=== PATIENT | male | born 1975 | race Caucasian/White ===

== ENCOUNTER 2018-09-02 15:47 | Emergency (ER) | payer BC, OTHER ==
--- NOTE | 2018-09-02 17:51 | ED ---
GI/ HPI - HPI Summary HPI Summary: 42 yo male presents to [facility] [place] ED with right testicular pain over the last 1 - 1.5 weeks. He tells me that it is a dull pain on the lateral side of the right testicle that began suddenly over a week ago. He has not been sexually active in over 3 months. He is urinating without pain or burning. He has never had pain like this before. Pain is worse with sitting for long periods of time. Pain is intermittent throughout the day lasting up to 5-10minutes at a time and resolves spontaneously. Denies trauma, dysuria, hematuria, rash, swelling, or lesions. No fevers, chills, night sweats, or unexplained weight loss. PMHx positive for a vasectomy about 11 years ago. - History of Current Complaint Chief Complaint: EDAbdPain Time Seen by Provider: 09/02/18 17:47 Stated Complaint: ABD AND GROIN PAIN Hx Obtained From: Patient Onset/Duration: Started Weeks Ago Timing: Intermittent Severity: Mild Current Severity: Mild Pain Intensity: 3 - Allergy/Home Medications Allergies/Adverse Reactions: Allergies Allergy/AdvReac Type Severity Reaction Status Date / Time No Known Allergies Allergy Verified 09/02/18 16:08 Home Medications: Home Medications NK [No Home Medications Reported] 09/02/18 [History Confirmed 09/02/18] PMH/Surg Hx/FS Hx/Imm Hx Endocrine/Hematology History: Denies: Hx Anticoagulant Therapy, Hx Unexplained Bleeding History: Denies: Hx Benign Prostatic Hyperplasia, Hx Kidney Infection, Hx Kidney Stones, Other Problems/Disorders - Surgical History Surgery Procedure, Year, and Place: Vasectomy 2007 Infectious Disease History: No Infectious Disease History: Denies: Traveled Outside the [place] in Last 30 Days - Family History Known Family History: Positive: None - Social History Occupation: Employed Full-time Lives: Alone Alcohol Use: Occasionally Substance Use Type: Reports: None Smoking Status (MU): Former Smoker Review of Systems Constitutional: Negative Eyes: Negative ENT: Negative Cardiovascular: Negative Respiratory: Negative Gastrointestinal: Negative Positive: other - Right testicular pain Neurological: Negative Psychological: Normal All Other Systems Reviewed And Are Negative: Yes Physical Exam - Summary Physical Exam Summary: GENERAL: NAD. WDWN. No pain distress. SKIN: No rashes, sores, lesions, or open wounds. NECK: Supple. Nontender. No lymphadenopathy. CHEST: CTAB. No r/r/w. No accessory muscle use. Breathing comfortably and in no distress. CV: RRR. Without m/r/g. Pulses intact. Cap refill <2seconds ABDOMEN: Soft. NTTP. No distention or guarding. No CVA tenderness. Bowel sounds present NEURO: Alert. PSYCH: Age appropriate behavior. Triage Information Reviewed: Yes Vital Signs On Initial Exam: Initial Vitals Temp Pulse Resp BP Pulse Ox 98.3 F 63 18 138/90 97 09/02/18 16:06 09/02/18 16:06 09/02/18 16:06 09/02/18 16:06 09/02/18 16:06 Laboratory Tests 09/02/18 17:18 Urine Color Straw Urine Appearance Clear Urine pH 7.0 Ur Specific [place] 1.009 L Urine Protein Negative Urine Ketones Negative Urine Blood Negative Urine Nitrate Negative Urine Bilirubin Negative Urine Urobilinogen Negative Ur Leukocyte Esterase Negative Urine Glucose Negative Vital Signs Reviewed: Yes Male Genital Exam: Positive: Normal Genitalia, Testicular Tenderness (R) - Very mild on lateral aspect of right testicle., Other - No masses palpated.. Negative: Bleeding, Epididymal Tenderness, Erythema, Hernia Mass, Inguinal Tenderness, Lesions, Scrotum Tenderness (R), Scrotum Tenderness (L), Testicular Tenderness (L), Urethral Discharge Diagnostics - Vital Signs Vital Signs Temp Pulse Resp BP Pulse Ox 09/02/18 16:06 98.3 F 63 18 138/90 97 - Laboratory Lab Statement: Any lab studies that have been ordered have been reviewed, and results considered in the medical decision making process. GIGU Course/Dx - Course Course Of Treatment: Testicular US: IMPRESSION: Heterogeneous striated appearance of the testis bilaterally with normal flow. pattern suggestive of tubular atrophy. Follow-up exam is suggested. Moderate left hydrocele. Small epididymal cysts are noted. UA is negative. Exam is WNL. Discussed results with pt. I am unsure the cause of his testicular pain at this time, but workup here has been negative, therefore recommended follow up as an outpatient with urology. He was agreeable to this. - Diagnoses Provider Diagnoses: Testicular pain Discharge - Sign-Out/Discharge Documenting (check all that apply): Patient Departure Patient Received Moderate/Deep Sedation with Procedure: No - Discharge Plan Condition: Stable Disposition: HOME Patient Education Materials: Testicle Pain (ED) Referrals: No Primary Care Phys,NOPCP [Primary Care Provider] - Srikanth Roche MD [Medical Doctor] - As Soon As Possible Additional Instructions: If you develop a fever, shortness of breath, chest pain, new or worsening symptoms - please call your PCP or go to the ED. Your blood pressure was high at todays visit. Please see your primary provider within 4 weeks for recheck and re-evaluation. Please call Urology at the number below to schedule a follow up appointment for further evaluation. - Billing Disposition and Condition Condition: STABLE Disposition: Home
[2018-09-02 17:55] LABS: Urine Appearance Clear; Urine Bilirubin Negative (Negative); Urine Blood Negative (Negative); Urine Color Straw; Urine Glucose Negative (Negative); Urine Ketones Negative (Negative); Urine Nitrite Negative (Negative); Urine Protein Negative (Negative); Urine Specific Gravity 1.009 (1.010-1.030); Urine Urobilinogen Negative (Negative)
[2018-09-02 18:40] VITALS: BP 122/74
== END 2018-09-02 18:40 | disposition home or self-care (01) ==
LOC: ED 15:47
DX: N50.811 Right testicular pain (principal); N43.3 Hydrocele, unspecified; N50.3 Cyst of epididymis; Z87.891 Personal history of nicotine dependence
CPT/HCPCS: 76870; 81003; 99282